=== PATIENT | female | born 1975 | race Caucasian/White ===

== ENCOUNTER 2016-08-13 11:45 | Emergency (ER) | payer OTHER ==
[2016-08-13 11:55] VITALS: TEMP 98.1; BMI 22.6
[2016-08-13] MEDS ORDERED: diazePAM CARPU-JECT 10 MG/2 ML DISP.SYRIN IVPUSH ONE (12:42)
[2016-08-13] MEDS ORDERED: ONDANSETRON 4 MG/2 ML VIAL IVPB ONE (12:42)
--- NOTE | 2016-08-13 12:44 | PDOC ---
*Physical Exam - Vital Signs Last Vital Signs Temp Pulse Resp BP Pulse Ox 98.1 F 71 18 110/69 100 08/13/16 11:52 08/13/16 11:52 08/13/16 11:52 08/13/16 11:52 08/13/16 11:52 - Physical Exam Comments: 08/13/16 16:38 Pt seen by the Advanced Practice Provider under my direct supervision Pt interviewed and examined Ancillary studies reviewed PROPOSAL CONSULTANT is aware of endometrial mass enlargement and will follow up I agree with plan as outlined by the Advanced Practice Provider ED Treatment Course - LABORATORY CBC & Chemistry Diagram: 08/13/16 12:39 08/13/16 12:39 *DC/Admit/Observation/Transfer Diagnosis at time of Disposition: BPV (benign positional vertigo) Qualifiers: Laterality: unspecified laterality Qualified Code(s): H81.10 - Benign paroxysmal vertigo, unspecified ear - Discharge Dispostion Disposition: HOME Condition at time of disposition: Fair - Prescriptions Prescriptions: Diphenhydramine HCl [Benadryl -] 25 mg PO Q8H PRN #21 capsule PRN Reason: sneezing/cough Meclizine HCl 25 mg PO Q8H #20 tablet - Referrals Referrals: Aristides Austin MD [Staff Physician] - - Patient Instructions Printed Discharge Instructions: DI for Benign Paroxysmal Positional Vertigo Additional Instructions: Rest, drink lots of fluids: Teas, water, soups Keisha jarvis, carbonated beverages for the bubbles May try peppermint teas Avoid heavy , spicy or fatty foods until symptoms have resolved Avoid contact with others until fevers and symptoms resolved Lots of handwashing and good hygiene Continue [id number] medications for symptomatic relief Tylenol or Motrin for fever and pain May use meclizine 25 mg tablet as needed for nauseousness and dizziness May repeat every 8 hours Add Benadryl 25 mg tablet as needed for continued dizziness Followup with private physician in one to 2 days as needed cAll neurologist for further evaluation for dizziness Return to emergency department for worsened symptoms, fevers, dehydration - Post Discharge Activity Work/School Note: Back to Work
--- NOTE | 2016-08-13 12:44 | PDOC ---
History of Present Illness - General Chief Complaint: Headache Stated Complaint: VOMITING/DIZZINESS Time Seen by Provider: 08/13/16 12:16 History Source: Patient, Spouse Exam Limitations: No Limitations - History of Present Illness Initial Comments: 08/13/16 12:52 came with to emergency department with acute onset last night of positional dizziness. States was not performing any extreme activity. Has not been sick recently, no fevers, ear or sore throat pain. No family members are ill. States onset of dizziness is with spinning that is on the horizontal plane , somersaulting and much worse in movement, and has been vomiting and this morning due to the dizziness. Patient denies any history of vertigo, has taken only Tylenol for relief of symptoms, with no resolve. Denies cough shortness of breath, chest pain palpitations, denies any weakness tingling numbness or any other neurologic change. No recent injury trauma or exercise change. 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 Drug or alcohol use. Had tubal ligation and normal menstrual cycle 2 weeks ago. 08/13/16 12:59 08/13/16 13:01 Timing/Duration: reports: 24 hours Severity: Yes: moderate, severe Associated Symptoms: reports: nausea/vomiting, weakness. denies: loss of consciousness, muscle spasms Past History - Travel Traveled outside of the country in the last 30 days: No Close contact w/someone who was outside of country & ill: No - Past Medical History Allergies/Adverse Reactions: Allergies Allergy/AdvReac Type Severity Reaction Status Date / Time No Known Allergies Allergy Unverified 08/13/16 11:52 Home Medications: Ambulatory Orders Diphenhydramine HCl [Benadryl -] 25 mg PO Q8H PRN #21 capsule 08/13/16 Meclizine HCl 25 mg PO Q8H #20 tablet 08/13/16 - Psycho/Social/Smoking Cessation Hx Anxiety: No Suicidal Ideation: No Smoking History: Never smoked Have you smoked in the past 12 months: No Information on smoking cessation initiated: No Hx Alcohol Use: No Drug/Substance Use Hx: No Substance Use Type: None Neuro Specific PMHX - Complaint Specific PMHX Glaucoma: No Neuropathy: No TIA: No Review of Systems - Review of Systems Able to Perform ROS?: Yes Is the patient limited Lao proficient: Yes Constitutional: Yes: Symptoms Reported, See HPI, Malaise HEENTM: Yes: Symptoms Reported, See HPI, Ear Pain (ear congestion with some ALLERGIC rhinitis but not severe, no fevers, no drainage.), Nose Congestion. No : Eye Pain, Blurred Vision Respiratory: Yes: See HPI. No: Symptoms reported, Cough, Shortness of Breath, Wheezing Cardiac (ROS): No: Symptoms Reported ABD/GI: Yes: See HPI, Nausea, Poor Appetite, Vomiting. No: Symptoms Reported, Difficulty Swallowing : Yes: See HPI. No: Symptoms Reported, Burning, Dysuria Integumentary: Yes: See HPI. No: Symptoms Reported Neurological: Yes: Symptoms reported, See HPI, Headache, Dizziness All Other Systems: Reviewed and Negative *Physical Exam - Vital Signs Last Vital Signs Temp Pulse Resp BP Pulse Ox 98.1 F 71 18 110/69 100 08/13/16 11:52 08/13/16 11:52 08/13/16 11:52 08/13/16 11:52 08/13/16 11:52 - Physical Exam General Appearance: Yes: Nourished, Appropriately Dressed, Moderate Distress, Severe Distress HEENT: positive: EOMI, [place] (with some vertical nystagmus with movement), TMs Normal (congested but landmarks easily visualized), Rhinorrhea. 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 We will provide fluids, obtain basic labs and UCG, provide Zofran and Valium IV and reevaluate Medical Decision Making - Medical Decision Making 08/13/16 15:17 Medicated with 2 L of IV fluid, and 5 mg of IV Valium. Has been sleeping however with arousal denies any changes in vertigo and has significant recurrence with movement of her head. We will by mouth meclizine and IV Benadryl and reevaluate 08/13/16 16:59 Is to complain of frontal and coronal headache, however states vertigo is mildly improved after meclizine and Benadryl. Will send for CAT scan 08/13/16 18:34 States feels much improved, ready for discharge however still has continued dizziness. follow up with PMD and sent meclizine and Benadryl to pharmacy *DC/Admit/Observation/Transfer Diagnosis at time of Disposition: BPV (benign positional vertigo) Qualifiers: Laterality: unspecified laterality Qualified Code(s): H81.10 - Benign paroxysmal vertigo, unspecified ear - Discharge Dispostion Disposition: HOME Condition at time of disposition: Stable Admit: No - Referrals Referrals: Aristides Austin MD [Staff Physician] - - Patient Instructions Printed Discharge Instructions: DI for Benign Paroxysmal Positional Vertigo Additional Instructions: Rest, drink lots of fluids: Teas, water, soups Keisha jarvis, carbonated beverages for the bubbles May try peppermint teas Avoid heavy , spicy or fatty foods until symptoms have resolved Avoid contact with others until fevers and symptoms resolved Lots of handwashing and good hygiene Continue [id number] medications for symptomatic relief Tylenol or Motrin for fever and pain May use meclizine 25 mg tablet as needed for nauseousness and dizziness May repeat every 8 hours Add Benadryl 25 mg tablet as needed for continued dizziness Followup with private physician in one to 2 days as needed cAll neurologist for further evaluation for dizziness Return to emergency department for worsened symptoms, fevers, dehydration - Post Discharge Activity Work/School Note: Back to Work
[2016-08-13 12:55] LABS: BASOPHIL 0.6 % (0-2.0); EOSINOPHIL 0.2 % (0-4.5); MCH 26.2 pg (25.7-33.7); MCHC 32.9 g/dl (32.0-36.0); MEAN CELL VOLUME 79.8 fl (80-96); MEAN PLT VOLUME 8.7 fl (7.5-11.1); NEUTROPHILS 83.8 % (42.8-82.8); PLATELET COUNT 267 K/MM3 (134-434); RDW 15.4 % (11.6-15.6)
[2016-08-13 12:58] LABS: URINE APPEARANCE CLEAR; URINE BILIRUBIN NEGATIVE (NEGATIVE); URINE COLOR YELLOW; URINE GLUCOSE (UA) NEGATIVE (NEGATIVE); URINE KETONE NEGATIVE (NEGATIVE); URINE LEUK ESTERASE NEGATIVE (NEGATIVE); URINE NITRITE NEGATIVE (NEGATIVE); URINE PROTEIN NEGATIVE (NEGATIVE); URINE UROBILINOGEN NEGATIVE E.U./dl (0.2-1.0)
[2016-08-13] MEDS ORDERED: ONDANSETRON 4 MG/2 ML VIAL ONE (12:58)
[2016-08-13 13:14] LABS: URINE BLOOD 2+ (NEGATIVE)
[2016-08-13 13:21] LABS: ALK PHOS 59 U/L (45-117); ANION GAP 7 (8-16); BILIRUBIN,TOTAL 0.4 mg/dL (0.2-1.0); CALCIUM 9.4 mg/dL (8.5-10.1); CO2 27 mmol/L (21-32); CREATININE 0.7 mg/dL (0.55-1.02); GLUCOSE,RANDOM 91 mg/dL (74-106); SGPT/ALT 27 U/L (12-78); TOT PROT 7.5 g/dl (6.4-8.2)
[2016-08-13 13:22] LABS: SGOT/AST 22 U/L (15-37)
[2016-08-13 13:28] LABS: URINE MUCUS RARE; URINE RBC 4 /hpf (0-3); URINE WBC 4 /hpf (3-5)
[2016-08-13] MEDS ORDERED: diazePAM CARPU-JECT 10 MG/2 ML DISP.SYRIN ONE (13:40)
[2016-08-13] MEDS ORDERED: hydrOXYzine PAMOATE 25 MG CAPSULE (FP) PO ONE (15:15)
[2016-08-13] MEDS ORDERED: METOCLOPRAMIDE HCL INJECTION 10 MG/2 ML VIAL ONE (15:17)
[2016-08-13] MEDS ORDERED: MECLIZINE HCL 25 MG TABLET (FP) ONE (15:21)
[2016-08-13] MEDS ORDERED: ESMOLOL IVPB ONE (17:49)
[2016-08-13 18:49] VITALS: BP 122/85; PULSE 92
== END 2016-08-13 18:49 | disposition home or self-care (01) ==
LOC: JER 11:45
PROC: 3E033NZ Introduction of Analgesics, Hypnotics, Sedatives into Peripheral Vein, Percutaneous Approach (ICD-10-PCS; principal; 2016-08-13)
PROC: 3E033GC Introduction of Other Therapeutic Substance into Peripheral Vein, Percutaneous Approach (ICD-10-PCS; 2016-08-13)
PROC: 3E033GC Introduction of Other Therapeutic Substance into Peripheral Vein, Percutaneous Approach (ICD-10-PCS; 2016-08-13)
DX: H81.10 Benign paroxysmal vertigo, unspecified ear (principal)
CPT/HCPCS: 36415; 70450-TC; 80053; 81003; 81015; 84703; 85025; 99283-25

== ENCOUNTER 2019-12-12 04:35 | Day surgery (SDC) | payer OTHER ==
[2019-12-11 13:57] VITALS: BMI 25.2
--- NOTE | 2019-12-12 07:56 | HP ---
History & Physical Update - History History: No Change (Consent signed and witnessed) - Physical Physical: No Change - Assessment Assessment: No Change - Plan Plan: No Change
--- NOTE | 2019-12-12 07:57 | OP ---
Operative Note - Note: Operative Date: 12/12/19 Pre-Operative Diagnosis: 44yo P3 with Metrorrhagia, fibroid uterus Operation: Hysteroscopy, myomectomy, polypectomy, D&C Findings: Right fundal fibroid Cervical polyp 6cm anteflexed uterus Post-Operative Diagnosis: Same as Pre-op Surgeon: Bernie Montenegro Anesthesiologist/VOICER: Luiz Gaffney Anesthesia: MAC Specimens Removed: 1. Fibroid+polyp Estimated Blood Loss (mls): 5 Instrument used (Debridements only): Symphion Hysteroscope Drains & Tubes with Location: Fluid deficit - 0cc Drains, Volume Out (mls): 10 Fluid Volume Replaced (mls): 600 Operative Report Dictated: Yes
[2019-12-12] MEDS ORDERED: DEXAMETHASONE SOD PHOSPHATE 4 MG/1 ML VIAL ONE (09:21)
[2019-12-12] MEDS ORDERED: LIDOCAINE HCL/PF 2% SDV 5ML VIAL ONE (09:21)
[2019-12-12] MEDS ORDERED: MIDAZOLAM HCL 2 MG/2 ML SINGLE DOSE VIAL ONE ×2 (09:22→10:18)
[2019-12-12] MEDS ORDERED: PROPOFOL 20 ML ONE ×2 (09:22→10:17)
[2019-12-12] MEDS ORDERED: NEOSTIGMINE METHYLSULFATE 0.5 MG/ML - 10 ML MDV ONE (10:07)
[2019-12-12] MEDS ORDERED: KETOROLAC TROMETHAMINE 30 MG/1 ML VIAL ONE (10:08)
[2019-12-12] MEDS ORDERED: GLYCOPYRROLATE 0.2 MG/1 ML VIAL ONE (10:08)
[2019-12-12] MEDS ORDERED: ONDANSETRON 4 MG/2 ML VIAL IVPUSH PRN (11:07)
[2019-12-12] MEDS ORDERED: LACTATED RINGERS SOLUTION 1,000 ML IV SCH (11:15)
[2019-12-12] MEDS ORDERED: IBUPROFEN 400 MG TABLET (FP) PO ONE ×2 (12:55→12:56)
--- NOTE | 2019-12-12 13:44 | OP ---
DATE OF OPERATION: DATE OF DICTATION: 12/12/2019 PREOPERATIVE DIAGNOSIS: A 44-year-old para 3 with metrorrhagia, fibroid uterus. OPERATION: Hysteroscopy, myomectomy, polypectomy, dilation and curettage. FINDINGS: Right fundal submucosal fibroid, cervical polyp, 6 cm anteflexed uterus. POSTOPERATIVE DIAGNOSIS: A 44-year-old para 3 with metrorrhagia, fibroid uterus. SURGEON: Bernie Montenegro MD ANESTHESIOLOGIST: Getachew Gaffney MD ANESTHESIA: MAC. SPECIMENS REMOVED: Fibroid and polyp. DESCRIPTION OF OPERATIVE PROCEDURE: After assuring informed consent, patient was brought to the operating room where MAC anesthesia was administered. Patient was placed in dorsal lithotomy position. Perineum and vagina were prepped and draped in sterile fashion. The Guo retractors were placed into the vagina and anterior cervix lip was visualized and grasped with single-tooth tenaculum. Cervix was dilated with gradual increasing in size dilators to accommodate 6.3-mm Symphion hysteroscope which was introduced into the uterus without any difficulty. The above findings were noted and resectoscope piece was introduced through the operative port. The large submucosal fibroid was resected as well as the cervical polyp. Excellent hemostasis was noted. Specimens removed were fibroid and polyp. Subsequently all instruments were removed from uterus, cervix and vagina. Estimated blood loss was 5 mL. Patient received 600 mL of IV fluids and drained 10 mL of urine. Fluid deficit was 0 mL. All instrument and sponge count was correct x2 and patient was brought to the recovery room in stable condition. Raj [id number]
[2019-12-12 15:01] VITALS: BP 107/58; PULSE 70; TEMP 98.4
--- NOTE | 2019-12-13 18:34 | PATH ---
Surgical Pathology Report Patient Name: MERE SCHWARTZ [facility]. Rec. #: [id number] /Age/Gender: 1975 (Age: 44) / F Account: [id number] Location: [facility] SURGICAL Taken: 12/12/2019 Received: 12/12/2019 Reported: 12/13/2019 Physicians: Bernie Montenegro M.D. Specimen(s) Received FIBROID POLYP Clinical History Leiomyoma of uterus, frequent menstruation Final Diagnosis FIBROID AND POLYP, POLYPECTOMY AND MYOMECTOMY: FRAGMENTS OF ENDOMETRIAL POLYP. SEPARATE PROLIFERATIVE ENDOMETRIUM AND SUBJACENT SMOOTH MUSCLE BUNDLES. SEE COMMENT. SEPARATE FRAGMENTS OF UNREMARKABLE ENDOCERVICAL TISSUE. Comment: Smooth muscle bundles may represent a submucosaL leiomyoma in the proper clinical setting. Suggest clinical correlation. Electronically Signed Alessio Bryan M.D. Gross Description Received in formalin labeled "fibroid and polyp," is a 2.1 x 1.6 x 0.3 cm aggregate of miguel soft tissue fragments. The formalin is filtered and the specimen is entirely submitted in one cassette. /12/12/2019 [facility]12/12/2019
== END 2019-12-12 13:40 | disposition home or self-care (01) ==
LOC: JASU-SURG 04:35
PROVIDERS: ATTEND Obstetrics & Gynecology
PROC: 0UB97ZX Excision of Uterus, Via Natural or Artificial Opening, Diagnostic (ICD-10-PCS; 2019-12-12)
PROC: 0UDB7ZX Extraction of Endometrium, Via Natural or Artificial Opening, Diagnostic (ICD-10-PCS; 2019-12-12)
PROC: 0UJD8ZZ Inspection of Uterus and Cervix, Via Natural or Artificial Opening Endoscopic (ICD-10-PCS; 2019-12-12)
PROC: 0UB98ZZ Excision of Uterus, Via Natural or Artificial Opening Endoscopic (ICD-10-PCS; principal; 2019-12-12 10:00)
PROC: 0UBC7ZX Excision of Cervix, Via Natural or Artificial Opening, Diagnostic (ICD-10-PCS; 2019-12-12 10:00)
DX: N92.1 Excessive and frequent menstruation with irregular cycle (principal); D25.0 Submucous leiomyoma of uterus; N84.1 Polyp of cervix uteri
CPT/HCPCS: 71046-TC-FY; 81025; 88305-TC; 94760